=== PATIENT | male | born 1990 | race American Indian/Alaskan Native ===

== ENCOUNTER 2022-04-23 10:22 | Emergency (ER) | payer SELFPAY ==
[2022-04-23 10:33] VITALS: BP 144/83
[2022-04-23] MEDS ORDERED: LIDOCAINE-MPF (1%) 10 MG/1 ML VIAL 5 ML INFILTRATI ONE (10:51)
[2022-04-23] MEDS ORDERED: AZITHROMYCIN 250 MG TAB PO ONE (10:51)
--- NOTE | 2022-04-23 10:55 | Emergency Department Report ---
ED General Adult HPI - General Chief complaint: Urogenital-Male Stated complaint: IRREGULAR URINE/FUNNY FEELING Time Seen by Provider: 04/23/22 10:27 Source: patient Mode of arrival: Ambulatory Limitations: No Limitations - History of Present Illness Initial comments: 31-year-old male no significant past medical history reports to the ER with complaints of dysuria and a family feeling with urination. Patient reports that his significant other girlfriend informed him that she has been having burning with urination 1 week ago as well as 2 to 3 days ago patient sexual partner reported bleeding burning with urination and discomfort. Now patient is reporting discomfort today denies discharge. No acute signs symptoms reported. Severity scale (0 -10): 2 - Related Data Previous Rx's Medication Instructions Recorded Last Taken Type Doxycycline Hyclate 100 mg PO BID 7 Days #14 cap 04/23/22 Unknown Rx Allergies Allergy/AdvReac Type Severity Reaction Status Date / Time No Known Allergies Allergy Verified 04/23/22 10:34 ED Review of Systems ROS: Stated complaint: IRREGULAR URINE/FUNNY FEELING Other details as noted in HPI Comment: All other systems reviewed and negative Genitourinary: dysuria ED Past Medical Hx - Past Medical History Previous Medical History?: No - Surgical History Past Surgical History?: No - Medications Home Medications: Home Medications Medication Instructions Recorded Confirmed Last Taken Type Doxycycline Hyclate 100 mg PO BID 7 Days #14 cap 04/23/22 Unknown Rx ED Physical Exam - General Limitations: No Limitations General appearance: alert, in no apparent distress - Head Head exam: Present: atraumatic, normocephalic - Eye Eye exam: Present: normal appearance - ENT ENT exam: Present: mucous membranes moist - Neck Neck exam: Present: normal inspection - Respiratory Respiratory exam: Present: normal lung sounds bilaterally. Absent: respiratory distress - Cardiovascular Cardiovascular Exam: Present: regular rate, normal rhythm. Absent: systolic murmur, diastolic murmur, rubs, gallop - GI/Abdominal GI/Abdominal exam: Present: soft, normal bowel sounds - Rectal Rectal exam: Present: deferred - exam: Present: normal inspection. Absent: testicular tenderness, urethral discharge - Extremities Exam Extremities exam: Present: normal inspection - Back Exam Back exam: Present: normal inspection - Neurological Exam Neurological exam: Present: alert, oriented X3 - Psychiatric Psychiatric exam: Present: normal affect, normal mood - Skin Skin exam: Present: warm, dry, intact, normal color. Absent: rash ED Course Vital Signs 04/23/22 10:30 Temperature 98.5 F Pulse Rate 71 Respiratory 16 Rate Blood Pressure 144/83 [Right] O2 Sat by Pulse 99 Oximetry ED Medical Decision Making - Medical Decision Making 31-year-old male no significant past medical history reports to the ER with co mplaints of dysuria and a family feeling with urination. Patient reports that his significant other girlfriend informed him that she has been having burning with urination 1 week ago as well as 2 to 3 days ago patient sexual partner reported bleeding burning with urination and discomfort. Now patient is reporting discomfort today denies discharge. No acute signs symptoms reported. No acute signs noted on physical exam. Patient prophylactically treated for gonorrhea chlamydia with 1 g azithromycin p.o. and 500 mg Rocephin IM. Patient informed to follow-up with health department if further testing is needed. Patient also informed to follow his primary care provider as needed. Patient also discharged home with doxycycline 100 mg twice daily for 7 days. Patient agrees with plan of care and verbalized understanding. No further work-up is needed at this time. Vital Signs 04/23/22 10:30 Temperature 98.5 F Pulse Rate 71 Respiratory 16 Rate Blood Pressure 144/83 [Right] O2 Sat by Pulse 99 Oximetry Critical care attestation.: If time is entered above; I have spent that time in minutes in the direct care of this critically ill patient, excluding procedure time. ED Disposition Clinical Impression: Potential exposure to STD, Dysuria Disposition: HOME / SELF CARE / HOMELESS Is pt being admited?: No Condition: Stable Instructions: Dysuria, Safe Sex Prescriptions: Doxycycline Hyclate 100 mg PO BID 7 Days #14 cap Referrals: YARITZA PARIS MD [Primary Care Provider] - 3-5 Days
== END 2022-04-23 11:15 | disposition home or self-care (01) ==
LOC: ED 10:22
DX: Z20.2 Contact with and (suspected) exposure to infections with a predominantly sexual mode of transmission (principal); R30.0 Dysuria; Z79.899 Other long term (current) drug therapy
CPT/HCPCS: 87591; 96372; 99282; J0696; J3490